=== PATIENT | male | born 1990 | race Caucasian/White ===

== ENCOUNTER 2018-08-10 19:05 | Emergency (ER) | payer MEDICAID ==
[~2018-08-10] VITALS: Ht 165.1 cm; Wt 54.0 kg
[~2018-08-10 19:05] MED LIST: AZIT200S47 PO; CARB15DR91 EACH EAR; PARO10TA23 PO
[2018-08-10] MEDS ORDERED: AZIT-72 PO (20:26)
[2018-08-10] MEDS ORDERED: NEOM10SO7 OT (20:26)
[2018-08-10 20:30] VITALS: BP 120/61
== END 2018-08-10 20:31 | disposition home or self-care (01) ==
LOC: ER 19:06
DX: H66.91 Otitis media, unspecified, right ear (principal); H60.91 Unspecified otitis externa, right ear; Z79.2 Long term (current) use of antibiotics; Z79.899 Other long term (current) drug therapy
CPT/HCPCS: 99283